=== PATIENT | male | born 2000 | race African-American/Black ===

== ENCOUNTER 2023-01-05 21:11 | Emergency (ER) | payer MEDICAID ==
[~2023-01-05] VITALS: Ht 180.3 cm; Wt 74.0 kg
[2023-01-06] MEDS ORDERED: MOTRIN800 MG PO (01:00)
[2023-01-06 01:34] VITALS: BP 106/67
== END 2023-01-06 01:44 | disposition home or self-care (01) ==
LOC: ED 21:11
DX: S66.911A Strain of unspecified muscle, fascia and tendon at wrist and hand level, right hand, initial encounter (principal); X50.0XXA Overexertion from strenuous movement or load, initial encounter; Y93.89 Activity, other specified; Y92.89 Other specified places as the place of occurrence of the external cause; Y99.0 Civilian activity done for income or pay

== ENCOUNTER 2023-04-19 18:18 | Emergency (ER) | payer MEDICAID ==
[~2023-04-19] VITALS: Ht 180.3 cm; Wt 62.4 kg
[~2023-04-19 18:18] MED LIST: AMOXICILLIN500 MG PO; MOTRIN800 MG PO; ULTRAM50 MG PO
[2023-04-19 21:27] LABS: BASO% 0.3 % (0-3); EOS% 1.9 % (0-8); HEMATOCRIT 41.1 % (39.0-50.0); HEMOGLOBIN 13.5 g/dl (14.0-18.0); IMMATURE GRANULOCYTES 0.1 % (0.0-5.0); MEAN CELL VOLUME 91.7 fL CALC (80.0-100.0); MEAN CORPUSCULAR HGB 30.1 pG CALC (26.0-32.0); MEAN CORPUSCULAR HGB CONC 32.8 g/dL CAL (32.0-36.0); MONO% 4.5 % (2-13); NEUT# 4.62 thou/uL (1.82-7.42); NEUT% 51.2 % (42-76); RED BLOOD COUNT 4.48 mill/uL (4.70-6.10); RED CELL DISTRI WIDTH 12.1 % (11.5-15.5)
[2023-04-19 21:43] LABS: ALBUMIN 4.6 g/dL (3.2-5.0); ALKALINE PHOSPHATASE 95 u/l (38-126); ANION GAP 12 (6-22 (CALC)); BUN 5 mg/dL (9-20); BUN/CREATININE RATIO 6 (12-20 (CALC)); CARBON DIOXIDE 27 mmol/l (22-30); CHLORIDE 103 mmol/l (95-108); CREATININE 0.8 mg/dL (0.7-1.3); GFR FOR AFR.AMER. > 60 ML/MIN (>=60 (CALC)); GFR OTHER RACES > 60 ML/MIN (>=60 (CALC)); POTASSIUM 3.9 mmol/l (3.5-5.1); SGOT/AST 31 u/l (17-59); SODIUM 139 mmol/l (137-146); TOTAL PROTEIN 7.8 g/dL (6.3-8.2)
[2023-04-19] MEDS ORDERED: PROAIR DIG108 MCG/AC PO (22:06)
[2023-04-19 22:56] VITALS: BP 106/76
[2023-04-20] MEDS ORDERED: VENTOLIN HFA108 MCG IN (10:51)
== END 2023-04-19 22:56 | disposition home or self-care (01) ==
LOC: ED 18:18
PROVIDERS: Family Medicine
DX: R06.02 Shortness of breath (principal); Q89.3 Situs inversus; Z20.822 Contact with and (suspected) exposure to COVID-19